=== PATIENT | female | born 1990 | race Caucasian/White ===

== ENCOUNTER 2017-10-28 12:50 | Emergency (ER) | payer BC, OTHER ==
[2017-10-28 13:02] VITALS: BP 108/73; PULSE 92; TEMP 98.3; BMI 20.7
--- NOTE | 2017-10-28 14:11 | PDOC ---
History of Present Illness - General Chief Complaint: Rash Stated Complaint: RASH TO ARMS AND LEGS Time Seen by Provider: 10/28/17 13:19 - History of Present Illness Initial Comments: 10/28/17 14:05 Chief complaint: Rash History of present illness: This is a 27-year-old woman with no significant past medical history immunizations up-to-date who presents to the emergency department with 6 day history of rash. Patient had a rash starting 6 days ago. 2 days after the rash started she developed fever or chills body aches running nose cough congestion though symptoms lasted approximately 4 days and are currently resolving. The rash has been progressively more itchy is predominantly located on her arms and legs. No history of ALLERGIES Past History - Past Medical History Allergies/Adverse Reactions: Allergies Allergy/AdvReac Type Severity Reaction Status Date / Time No Known Allergies Allergy Unverified 10/28/17 12:51 Home Medications: Ambulatory Orders Fexofenadine HCl [Geri Allergy] 180 mg PO DAILY 14 Days #30 tablet 10/28/17 Meghana's Wort 300 mg PO DAILY 10/28/17 COPD: No Other medical history: BRAIN ANEURSYM - Suicide/Smoking/Psychosocial Hx Smoking History: Never smoked Information on smoking cessation initiated: No Hx Alcohol Use: Yes (SOCIAL) Drug/Substance Use Hx: No Substance Use Type: Alcohol Review of Systems - Review of Systems Comments:: 10/28/17 14:08 ROS: A complete review of 10 out of 10 review of systems is taken and is negative apart from what is previously mentioned below and in the HPI. *Physical Exam - Vital Signs Last Vital Signs Temp Pulse Resp BP Pulse Ox 98.3 F 92 H 16 108/73 98 10/28/17 12:51 10/28/17 12:51 10/28/17 12:51 10/28/17 12:51 10/28/17 12:51 - Physical Exam Comments: 10/28/17 14:08 Vitals: Triage Vital signs reviewed General Appearance: no acute distress, well nourished well developed, Head: Atraumatic, Throat: Posterior oropharynx without erythema, mucous membranes moist, Neck: Supple;No Nucal rigidity Chest Wall: Nontender Cardiac: Regular rate and rhythym, no murmurs, no rubs, no gallops, Lungs: Clear to auscultation bilateral, good air movement bilaterally, Abdomen: Soft, non distended, normal bowel sounds, non tender to palpation Extremities: Full range of motion to all extremities, no cyanosis, clubbing, or edema Skin: Viral exanthem with some urticarial areas to arms and legs. Neuro: AOX3; Cranial Nerves 2-12 grossly intact, Strength intact to all extremities, Sensation intact to all extremities,gait normal Psych: normal mood, normal affect Medical Decision Making - Medical Decision Making 10/28/17 14:09 Patient with rash preceding influenza-like illness followed by urticarial rash to trunk and arms. Well-appearing no apparent distress nontoxic appearing no mucosal involvement History and examination consistent with viral exanthem/viral urticaria Patient provided with dermatology follow-up we'll prescribe 2 week course of Geri Benadryl when necessary she will follow-up with dermatology if symptoms do not improve she'll return to the emergency department for any severe worsening symptoms or for any concerns. *DC/Admit/Observation/Transfer Diagnosis at time of Disposition: Urticaria - Discharge Dispostion Condition at time of disposition: Stable - Prescriptions Prescriptions: Fexofenadine HCl [Geri Allergy] 180 mg PO DAILY 14 Days #30 tablet - Referrals Referrals: Marla Davenport [Staff Physician] - Andriy Lino [Staff Physician] - - Patient Instructions Printed Discharge Instructions: Urticaria (Alternative Therapy) Additional Instructions: Geri 180 mg daily 2 weeks or until symptoms resolve. Follow-up with dermatology if no improvement in symptoms. Return to ED for any severe worsening symptoms or for any concerns. - Post Discharge Activity Forms/Work/School Notes: Back to Work
== END 2017-10-28 14:43 | disposition home or self-care (01) ==
LOC: FER 12:50
DX: L50.9 Urticaria, unspecified (principal)
CPT/HCPCS: 99281-25